=== PATIENT | male | born 1995 | race Caucasian/White ===

== ENCOUNTER 2017-09-03 00:48 | Emergency (ER) | payer MEDICAID ==
[~2017-09-03] VITALS: Ht 170.2 cm; Wt 117.9 kg
[2017-09-03 00:56] VITALS: BP 120/76
--- NOTE | 2017-09-03 01:05 | NUR ---
PT TAKEN TO BED 4
--- NOTE | 2017-09-03 01:19 | NUR ---
Dr. Chacon evaluating patient at bedside.
--- NOTE | 2017-09-03 01:23 | NUR ---
22Y/M PT. PRESENTS TO ED WITH C/O RT. FACIAL PAIN X 12 DAYS. PT. STATES HAVING DENTAL PAIN , THEN FACE SWELLING. NO MEDICAL HX. AAO X4, AMBULATORY WITH STEDAY GAIT. RESPIRATIONS ROOM AIR, EVEN AND UNLABORED. RT. FACE MILD SWELLING. C/O PAIN 02/08. VSS, ER MADE AWARE OF PT. STATUS.
[2017-09-03 01:42] VITALS: BP 120/76
--- NOTE | 2017-09-03 01:42 | NUR ---
Patient discharged with v/s stable. Written and verbal after care instructions given and explained. Patient alert, oriented and verbalized understanding of instructions. Ambulatory with steady gait. All questions addressed prior to discharge. ID band removed. Patient advised to follow up with PMD. Rx of AMOXICILLIN 500 MG, NORCO 5/325 MG, MOTRIN 800 MG given. Patient educated on indication of medication including possible reaction and side effects. Opportunity to ask questions provided and answered.
== END 2017-09-03 01:42 | disposition home or self-care (01) ==
LOC: MED 00:48
DX: K04.7 Periapical abscess without sinus (principal)
CPT/HCPCS: 99283